=== PATIENT | female | born 1975 | race Caucasian/White ===

== ENCOUNTER 2025-04-14 14:56 | Outpatient (RCR) | payer BC, SELFPAY ==
--- NOTE | 2025-04-14 15:37 | PTOPEVDC ---
Assessment and note entered by Liliana San, PT Thank you for referring Abeba Westbrook to [facility].? An evaluation has been completed. No further treatment is needed. Evaluation Information Assessment Status Evaluation and Discharge Diagnosis R42 Dizziness and giddiness ICD-10 Condition Codes (PT) Dizziness and Giddiness R42 Subjective Information Pt reports is not dizzy today. States has not been dizzy since appt. Was a couple weeks ago, was dizzy, nauseous, and made her anxious. Didn't notice anything in specific would set it off. Ears were ringing and full at the time. Doesn 't know is was anxiety Reported Pain Level Pain Score 0: Self Report Assessment PT Clinical Summary Pt presented for dizziness, and reports she has not had dizziness in a couple weeks. Pt balance testing WNL, testing for BPPV all WNL without nystagmus or symptoms. Likely pt BPPV spontaneously resolved. Therapy not required at this time for balance deficits or canalith repositioning. Plan of Care PT Services Indicated No
== END 2025-04-29 08:23 | disposition home or self-care (01) ==
LOC: ANHHIPT 14:56
PROVIDERS: PCP Physician Assistant Medical; Visit Provider Physician Assistant Medical
DX: R42 Dizziness and giddiness (principal)
CPT/HCPCS: 97161